=== PATIENT | female | born 1935 | race Caucasian/White ===

== ENCOUNTER 2018-03-21 10:19 | Day surgery (SDC) | payer OTHER, MEDICARE ==
[~2018-03-21] VITALS: Ht 157.5 cm; Wt 70.8 kg
[~2018-03-21 10:19] MED LIST: CALTRATE PLUS1 EACH PO; CARDURA4 MG PO; COZAAR50 MG PO; ELIQUIS5 MG PO; KLONOPIN1 MG PO; LASIX40 MG PO; LIPITOR40 MG PO; LOPRESSOR25 MG PO; NEURONTIN100 MG PO; PERCOCET 5/31 TABLET PO; PROAIR HFA8.5 GM IH; REGLAN5 MG PO; SPIRIVA1 INHALATI IH; VOLTAREN 1% GE100 GM TP
[2018-03-21 10:44] VITALS: BP 139/69
[2018-03-21 10:51] LABS: HEMATOCRIT 45.1 % (36.0-46.0); MCH 32.3 PG (29.0-34.0); MCHC 33.3 G/DL (30.0-36.0); PLATELET COUNT 239 K/uL (156-360); RBC DIS.WIDTH-CV 13.6 % (11.8-14.6); RED BLOOD COUNT 4.65 M/uL (3.80-5.20); WHITE BLOOD COUNT 8.9 K/uL (4.1-10.2)
[2018-03-21 11:16] LABS: ALBUMIN 3.9 G/DL (3.2-4.8); ALKALINE PHOSPHATASE 61 IU/L (3-129); ALT (GPT) 12 IU/L (3-49); AST (GOT) 17 IU/L (2-34); CHLORIDE 103 MEQ/L (99-109); GFR ESTIMATE (CALCULATED) 56 mL/min/; GLUCOSE 104 mg/dL (70-99); POTASSIUM 4.7 MEQ/L (3.7-5.4); SODIUM 143 MEQ/L (136-147); TOTAL BILIRUBIN 0.5 MG/DL (0.0-1.0); TOTAL PROTEIN 6.4 G/DL (6.4-8.3); UREA NITROGEN (BUN) 15 mg/dL (9-23)
[2018-03-21 15:33] VITALS: BP 180/86; BP 182/102
[2018-03-21 16:05] VITALS: BP 160/79
== END 2018-03-21 16:09 | disposition home or self-care (01) ==
LOC: SDC 10:19
PROVIDERS: Ophthalmology
DX: H35.372 Puckering of macula, left eye (principal); H35.342 Macular cyst, hole, or pseudohole, left eye; H59.022 Cataract (lens) fragments in eye following cataract surgery, left eye; H43.392 Other vitreous opacities, left eye; I48.91 Unspecified atrial fibrillation; I10 Essential (primary) hypertension; K21.9 Gastro-esophageal reflux disease without esophagitis; Z88.0 Allergy status to penicillin; F17.200 Nicotine dependence, unspecified, uncomplicated; Z88.2 Allergy status to sulfonamides
CPT/HCPCS: 80053; 85027; 87102; 87205; 93005; J0690; J0713; J1100; J2795; J3370; J3465